=== PATIENT | male | born 1960 | race Caucasian/White ===

== ENCOUNTER 2020-05-11 19:29 | Emergency (ER) | payer OTHER ==
[2020-05-11 19:47] VITALS: BP 152/97; PULSE 100; TEMP 98.2; BMI 26.6
[2020-05-11] MEDS ORDERED: LIDOCAINE 5% TOPICAL PATCH TP ONE (20:29)
[2020-05-11] MEDS ORDERED: KETOROLAC TROMETHAMINE 30 MG/1 ML VIAL IM ONE (20:29)
[2020-05-11] MEDS ORDERED: LIDOCAINE 5% TOPICAL PATCH ONE (20:39)
[2020-05-11] MEDS ORDERED: KETOROLAC TROMETHAMINE 30 MG/1 ML VIAL ONE (20:40)
[2020-05-11] MEDS ORDERED: LIDOCAINE PATCH REMOVAL MC SCH (22:00)
== END 2020-05-11 20:53 | disposition home or self-care (01) ==
LOC: JER 19:29
PROC: 3E023GC Introduction of Other Therapeutic Substance into Muscle, Percutaneous Approach (ICD-10-PCS; principal; 2020-05-11)
DX: S46.812A Strain of other muscles, fascia and tendons at shoulder and upper arm level, left arm, initial encounter (principal); M54.5 Low back pain; R07.81 Pleurodynia; V40.0XXA Car driver injured in collision with pedestrian or animal in nontraffic accident, initial encounter
CPT/HCPCS: 71046-TC-FY; 71101-TC-LT-FY; 93005; 93010; 99284-25